=== PATIENT | female | born 2000 | race Caucasian/White ===

== ENCOUNTER 2022-02-15 13:52 | Inpatient (IN) | payer OTHER ==
[2022-02-15] MEDS ORDERED: Lactated Ringers 1,000 ML ONE (14:35)
[2022-02-15] MEDS ORDERED: Oxytocin/Lactated Ringers 10 UNIT/1,000 ML BAG IV ONE (14:36)
[2022-02-15] MEDS ORDERED: Sodium Chloride 0.9% 10 ML Syringe FLUSH PRN (14:56)
[2022-02-15] MEDS ORDERED: Nalbuphine HCl 10 MG/ 1ML Amp IVPUSH PRN (14:56)
[2022-02-15] MEDS ORDERED: Ampicillin 2 GM Vial ONE (14:58)
[2022-02-15] MEDS ORDERED: Sodium Chloride 0.9% 100 ML ONE (14:59)
[2022-02-15] MEDS ORDERED: Oxytocin/Lactated Ringers 10 UNIT/1,000 ML BAG IV SCH (15:00)
[2022-02-15] MEDS ORDERED: Lactated Ringers 1,000 ML IV SCH (15:00)
[2022-02-15] MEDS ORDERED: Witch Hazel Medicated Pads 40/Jar TOP PRN (16:23)
[2022-02-15] MEDS ORDERED: Acetaminophen 325 MG Tab PO PRN (16:23)
[2022-02-15] MEDS ORDERED: Benzocaine/Menthol 20%-0.5% Spray 78 GM Cannister TOP PRN (16:23)
[2022-02-15] MEDS ORDERED: Docusate Sodium 100 MG Cap PO PRN (16:23)
[2022-02-15] MEDS: Ibuprofen 600 MG Tab PO PRN (16:37)
[2022-02-15] MEDS ORDERED: Sodium Chloride 0.9% 10 ML Syringe FLUSH SCH (21:00)
[2022-02-16] MEDS: Prenatal Multivitamin with Calcium/Folic Acid/Iron Tab PO SCH (10:00)
[2022-02-17] MEDS: Ibuprofen 600 MG Tab PO PRN (16:27)
[2022-02-17] MEDS: Prenatal Multivitamin with Calcium/Folic Acid/Iron Tab PO SCH (16:47)
== END 2022-02-17 18:53 | disposition home or self-care (01) | DRG 807 ==
LOC: JD.ED 13:52 → JD.OB 14:28 → OBSVTOIN 15:13 → JD.OB 15:14
PROVIDERS: ADMIT Obstetrics & Gynecology; ATTEND Obstetrics & Gynecology
PROC: 10E0XZZ Delivery of Products of Conception, External Approach (ICD-10-PCS; principal; 2022-02-15)
PROC: 0HQ9XZZ Repair Perineum Skin, External Approach (ICD-10-PCS; 2022-02-15)
DX: O70.0 First degree perineal laceration during delivery (principal); Z37.0 Single live birth; Z3A.00 Weeks of gestation of pregnancy not specified
CPT/HCPCS: 36415; 59025; 59409; 80306; 82947; 85025; 86592; 86762; 86803; 86850; 86900; 86901; 87340; 87653; 99284; 99285; A9270-GY; G0475; J0290; J2590; J7120